=== PATIENT | female | born 1935 | race Caucasian/White ===

== ENCOUNTER 2017-01-09 16:27 | Emergency (ER) | payer MEDICARE, MEDICAID ==
[~2017-01-09] VITALS: Ht 162.6 cm; Wt 86.4 kg
[~2017-01-09 16:27] MED LIST: CELE100C85 PO; DIAZ5TAB3 PO; DOXE10CA PO; DULO30CA50 PO; HYDR25TA4 PO; LOSA50TA37 PO; METF500T4 PO; OMEP40CA36 PO; OXYC-465 PO; POLY17PO2 PO; PRAV20TA2 PO; TIZA2CAP9 PO
[2017-01-09 16:38] VITALS: BP 143/114; PULSE 76; RESP 18; O2SAT 97
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
[2017-01-09] MEDS ORDERED: Ondansetron 2 mg/mL 2 mL Inj IVPUSH PRN (16:50)
[2017-01-09] MEDS ORDERED: HYDROmorphone 1 mg/mL Inj IVPUSH PRN (16:50)
--- NOTE | 2017-01-09 17:04 | DRSVH ---
PROCEDURE: X-RAY LEFT ANKLE, MINIMUM THREE VIEWS ([id number]) INDICATIONS: ANKLE DEFORMED TECHNIQUE: 3 views of the ankle were acquired. COMPARISON: None. FINDINGS: Bones: Oblique oriented fracture is identified involving the distal shaft of the left fibula with mil d comminution. There also is a fracture present involving the posterior malleolus of the distal tibi a and probably an avulsion fracture involving the tip of the medial malleolus. There is mild widenin g of the distal tibiofibular syndesmosis with slight offset of the medial clear space. The bone mine ralization is decreased. There are degenerative changes noted involving the subtalar joints. There is a moderate-sized enthesophyte at the Achilles tendon insertion on the calcaneus. Irregularity at the tip of the medial malleolus probably is at least in part chronic. Similar appearance is noted in volving the tip of the lateral malleolus. Soft tissues: There is a prominent ankle effusion with overlying soft tissue swelling. IMPRESSION: Mildly displaced trimalleolar left ankle fracture with involvement of the distal tibiofib ular syndesmosis and a prominent joint effusion. Dictated by: Jacobo Saxena M.D. on 01/09/2017 at 17:00 Approved by: Jacobo Saxena M.D. on 01/09/2017 at 17:02
[2017-01-09] MEDS ORDERED: ACET-171 PO (18:06)
[2017-01-09] MEDS ORDERED: HYDR-4003 PO (18:15)
[2017-01-09 18:21] VITALS: BP 129/89; PULSE 67; O2SAT 97
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
[2017-01-17] MEDS ORDERED: VIT1TABL83 PO (12:36)
[2017-01-17] MEDS ORDERED: VENL25TA4 PO (12:36)
[2017-01-17] MEDS ORDERED: GABA-500 PO (12:36)
[2017-01-17] MEDS ORDERED: LYSI500T PO (12:36)
[2017-01-17] MEDS ORDERED: BENZ100C8 PO (12:36)
[2017-01-17] MEDS ORDERED: DICL100G8 TOPICAL (12:36)
[2017-01-17] MEDS ORDERED: CALC200T6 PO (12:36)
[2017-01-17] MEDS ORDERED: ASCO500C6 PO (12:36)
[2017-01-17] MEDS ORDERED: CHOL100045 PO (12:36)
[2017-01-17] MEDS ORDERED: MAPAP PO (12:39)
[2017-01-17] MEDS ORDERED: TIZA2TAB3 PO (12:39)
== END 2017-01-09 18:23 | disposition home or self-care (01) ==
LOC: SED 16:27 → EDBD 16:27 → SED 18:23
DX: S82.852A Displaced trimalleolar fracture of left lower leg, initial encounter for closed fracture (principal); V19.88XA Pedal cyclist (driver) (passenger) injured in other specified transport accidents, initial encounter; Y93.55 Activity, bike riding; Y92.481 Parking lot as the place of occurrence of the external cause; Y99.8 Other external cause status; I10 Essential (primary) hypertension; E11.9 Type 2 diabetes mellitus without complications; F41.8 Other specified anxiety disorders; K21.9 Gastro-esophageal reflux disease without esophagitis; E78.5 Hyperlipidemia, unspecified; Z88.0 Allergy status to penicillin; Z79.84 Long term (current) use of oral hypoglycemic drugs
CPT/HCPCS: 73600; 73610; 96374; 96375; 99284; J1170; J2405

== ENCOUNTER 2017-01-11 13:03 | Emergency (ER) | payer MEDICARE, MEDICAID ==
[~2017-01-11] VITALS: Ht 165.1 cm; Wt 86.4 kg
[~2017-01-11 13:03] MED LIST changes: +ACET-171 PO; +HYDR-4003 PO
[2017-01-11 13:27] VITALS: BP 126/66; PULSE 90; RESP 16; O2SAT 93
--- NOTE | 2017-01-11 14:44 | ED.REPORT ---
HPI-Extremity Problem Lower Date of Service Jan 11, 2017 ED Provider: Dr. Ding 81 y/o female with a hx of fibromyalgia presents tot he ED complaining of right leg pain, onset today. The pt had injured her left leg two days ago so she has been using a scooter. She states she was trying to back her scooter up when she fell again and injured her right leg. She also complains of right shoulder pain. She has been taking pain medications for the left leg but they do not relieve her pain significantly. She has an appointment with Dr. Anderson next week for her left leg. The pt states she is uncomfortable being home alone because she can barely move and she almost falls while transferring herself from the scooter. Nursing Notes Stated Complaint: BROKEN LEFT ANKLE Chief Complaint: Multiple Trauma/Fall Nursing Notes Reviewed: Yes Allergies: Coded Allergies: Penicillins (Verified Allergy, Unknown, hives - anaphalaxis, 03/28/16) Scheduled Celecoxib (Celecoxib) 100 Mg Capsule 100 MG PO BID Doxepin (Doxepin) 10 Mg Capsule 10 MG PO HS Duloxetine (Duloxetine) 30 Mg Capsule.dr 30 MG PO HS Hydrochlorothiazide (Hydrochlorothiazide) 25 Mg Tablet 25 MG PO DAILY Losartan Potassium (Losartan Potassium) 50 Mg Tablet 50 MG PO DAILY Metformin (Metformin) 500 Mg Tablet 500 MG PO BID Breakfast/Dinner Omeprazole (Omeprazole) 40 Mg Capsule.dr 40 MG PO DAILY Pravastatin (Pravastatin) 20 Mg Tablet 20 MG PO DAILY Scheduled PRN Acetaminophen (Acetaminophen) 500 Mg Tablet 500 MG PO Q6H PRN PRN For Pain Diazepam (Diazepam) 5 Mg Tablet 5 MG PO BID PRN PRN For Anxiety Hydrocodone-Acetaminophen 5-325 mg (Hydrocodone-Acetaminophen 5-325 mg) 1 Each Tablet 1 TABLET PO Q4H PRN PRN For Pain Hydrocodone-Acetaminophen 5-325 mg (Hydrocodone-Acetaminophen 5-325 mg) 1 Each Tablet 1 TABLET PO Q6H PRN PRN For Pain Polyethylene Glycol 3350 (Polyethylene Glycol 3350) 17 Gm Powd.pack 17 GM PO DAILY PRN PRN For Constipation Tizanidine (Tizanidine) 2 Mg Capsule 2 MG PO TID PRN PRN For Spasm oxyCODONE-Acetaminophen 7.5-325 mg (oxyCODONE-Acetaminophen 7.5-325 mg) 1 Each Tablet 1 TAB PO DAILY PRN PRN For Pain General Time Seen by MD: 14:44 Chief Complaint Leg injury right Hx Obtained From: Patient Arrived By: Walk-in Onset Occurred: Just prior to arrival Symptom Duration: Since onset Caused by: Fall on ground Location: : Leg right Quality: Painful Severity: Current: Mild Severity: Maximum: Mild Recent Healthcare: Recent doctor visit Similar Sx Previous: No Past Medical History Past Medical History Colon CA, resolved Fibromyalgia Anxiety Stopped Metformin by her own will Heartburn Diverticulitis Reports: Diabetes mellitus, GERD, Hyperlipidemia, Hypertension Reports: Depression Past Surgical History Partial colectomy 2011 Smoking History Unknown if Ever Smoker Social History Other Social History: Lives alone Ambulatory Status Independent Review of Systems Musculoskeletal: Reports: Extremity pain (right leg pain), Joint pain (right shoulder pain) Complete sys rev & neg: except as marked. Physical Exam The splinted left foot has normal distal neurovascular status. Initial Vital Signs Vital Signs (First) Date Time Temp Pulse Resp B/P Pulse Ox O2 Delivery O2 Flow Rate FiO2 01/11/17 13:27 36.6 90 16 126/66 93 Room Air Initial VS: Reviewed, Vital signs normal Head / Eyes: Atraumatic, Normocephalic Neck: Supple, Non-tender, Full range of motion Respiratory: Breath sounds normal, Clear to auscultation, No respiratory distress Cardiovascular: Regular rate & rhythm, Heart sounds normal, Intact distal pulses Upper Extremities: Vascular intact, Neuro intact, No swelling, No tenderness Skin: Warm, Dry, No cyanosis Neurologic: Alert, Oriented, Nonfocal Lower Extremity / Pelvis / MS: Atraumatic, Neurologic intact, Vascular intact Left leg in a cast Free range of motion in right leg Ankle / Foot: Atraumatic, No deformity, Neurologic intact, Vascular intact Re-Eval/Medical Decision Med Decision/Clinical Course Physical therapy sees the patient and does believe that it is reasonable to attempt home management of this fracture and many strategies for ambulation and mobility were discussed. Source of Hx: Old records Re-Evaluation/Progress : Time of Eval: 16:45 Patient Status: Condition improved Re-Evaluation/Progress Note: Rechecked pt. She feels better after the pain medication. Discussed lab results, imaging results, diagnosis and plan to discharge. Pt understands and agrees with the plan. F/U instructions and RTER warning given. All questions addressed. Counseled Regarding: Diagnosis, Need for follow-up, When/why to return to ED Discharge & Departure Impression: Primary Impression: Left trimalleolar fracture Additional Impressions: Fall from ground level Contusion of right hip Disposition: Home Discharge Condition All VS Reviewed: Yes Condition: Stable Patient Instructions: Fall Prevention for Older Adults (ED) Additional Instructions: Take great care with moving about to avoid future falls. One possible keep that ankle elevated above your heart. I do recommend that you attempt to use ice packs 30 minutes at a time. Take one hydrocodone/APAP and two regular strength Tylenol (325 mg) every 6 hours. Keep your appointment with Dr. Anderson for your left leg. Return to the emergency department in case of new or worsening symptoms. Referrals: Caroline Valenzuela MD (PCP) Scribe Attestation Portions of this note were transcribed by Darrick Warren. I, , personally performed the history, physical exam and medical decision- making;I reviewed and confirmed the accuracy of the information in the transcribed note. Signed by Bhavna Manuel. 01/11/17 16:44 copies to: Caroline Valenzuela MD, Kirk H MD Jan 11, 2017 14:44 aDrrick Warren Jan 11, 2017 14:58
[2017-01-11] MEDS ORDERED: HYDROcodone-APAP 10-325 mg PO ONE (15:05)
[2017-01-11] MEDS ORDERED: HYDR-4003 PO (16:48)
[2017-01-11] MEDS ORDERED: HYDROcodone-APAP 5-325 mg Tablet PO ONE (16:50)
[2017-01-11 17:03] VITALS: BP 144/72; PULSE 83; RESP 12
[2017-01-17] MEDS ORDERED: VIT1TABL83 PO (12:36)
[2017-01-17] MEDS ORDERED: ASCO500C6 PO (12:36)
[2017-01-17] MEDS ORDERED: CHOL100045 PO (12:36)
[2017-01-17] MEDS ORDERED: VENL25TA4 PO (12:36)
[2017-01-17] MEDS ORDERED: GABA-500 PO (12:36)
[2017-01-17] MEDS ORDERED: LYSI500T PO (12:36)
[2017-01-17] MEDS ORDERED: DICL100G8 TOPICAL (12:36)
[2017-01-17] MEDS ORDERED: BENZ100C8 PO (12:36)
[2017-01-17] MEDS ORDERED: CALC200T6 PO (12:36)
[2017-01-17] MEDS ORDERED: TIZA2TAB3 PO (12:39)
[2017-01-17] MEDS ORDERED: MAPAP PO (12:39)
== END 2017-01-11 17:04 | disposition home or self-care (01) ==
LOC: SED 13:03
DX: S82.852A Displaced trimalleolar fracture of left lower leg, initial encounter for closed fracture (principal); S70.01XA Contusion of right hip, initial encounter; M25.511 Pain in right shoulder; V00.148A Other scooter (nonmotorized) accident, initial encounter; Y93.89 Activity, other specified; Y99.8 Other external cause status; Y92.019 Unspecified place in single-family (private) house as the place of occurrence of the external cause; K21.9 Gastro-esophageal reflux disease without esophagitis; I10 Essential (primary) hypertension; E78.5 Hyperlipidemia, unspecified; F41.9 Anxiety disorder, unspecified; M79.7 Fibromyalgia; Z85.038 Personal history of other malignant neoplasm of large intestine; Z88.0 Allergy status to penicillin; Z79.84 Long term (current) use of oral hypoglycemic drugs

== ENCOUNTER 2017-01-18 06:44 | Day surgery (SDC) | payer MEDICARE, MEDICAID ==
--- NOTE | 2017-01-17 15:37 | PCM.ANEPRE ---
Anesthesia Pre-Op Review Reason for Review: SURGEON'S REQUEST-MULT FALLS R/T PAF & DIZZINESS Anesthesia Recommendations: Proceed with Procedure Additional Comments 81 y/o female with ankle fracture s/p fall scheduled for L ankle ORIF tomorrow. Surgery is urgent but not an emergency. Patient has h/o PAF. EKG for preop on 01/17/17 showed NSR with HR 90. EKG in [facility] ED after fall on 01/11/19 showed NSR with HR 90. 03/29/16 Echo showed EF 60-65% with mild-mod tricuspid regurgitation but no other valvular disease. Cardiac stress test on 04/13 showed a normal exercise capacity. No cardiology consult that I can find, but the patient seems to be well controlled with her PCP on several BP meds. Proceed with surgery as planned pending evaluation by DOS anesthesiologist. Roger Huizar MD Jan 17, 2017 15:37
[2017-01-18] VITALS (16 sets, daily range): BP systolic 125–175; BP diastolic 57–73; PULSE 83–107; RESP 7–19; O2SAT 92–99
[~2017-01-18] VITALS: Ht 162.6 cm; Wt 86.2 kg
[2017-01-18] MEDS: Lactated Ringer's 1,000 ML IV SCH ×5 (06:00→17:48)
[~2017-01-18 06:44] MED LIST changes: -ACET-171 PO; +ASCO500C6 PO; +BENZ100C8 PO; +CALC200T6 PO; +CHOL100045 PO; +Clindamycin 900 mg/50 mL D5W IV ONE; +DICL100G8 TOPICAL; +GABA-500 PO; +LYSI500T PO; +MAPAP PO; -OXYC-465 PO; -TIZA2CAP9 PO; +TIZA2TAB3 PO; +VENL25TA4 PO; +VIT1TABL83 PO
[2017-01-18] MEDS ORDERED: Dexamethasone 4 mg/mL Inj ONE (06:45)
[2017-01-18] MEDS ORDERED: Ondansetron 2 mg/mL 2 mL Inj ONE (06:45)
[2017-01-18] MEDS ORDERED: Propofol 10,000 mCg/mL 20 mL Inj ONE (06:45)
[2017-01-18] MEDS ORDERED: fentaNYL-PF 50 mCg/mL 2 mL Inj ONE (06:45)
--- NOTE | 2017-01-18 08:12 | PCM.HPANE ---
Patient Data Surgeon Admitting Provider: Attending Provider:Baljit Anderson MD Primary Care Physician:Caroline Valenzuela MD Other Provider:Nicki Caliingham Anesthesia Reason for Visit Left Ankle Trimalleolar Fracture Ht/WT & BMI Height (Feet): 5 Height (Inches): 4.00 Weight (Kilograms): 86.183 Body Mass Index 32.00 Allergies Coded Allergies: Penicillins (Verified Allergy, Severe, HIVES,DIFFICULTY SWALLOWING, ) Sulfa (Sulfonamide Antibiotics) (Verified Allergy, Severe, HIVES, 01/17/17) Adhesives (Verified Allergy, Unknown, UNKNOWN, 01/17/17) codeine (Verified Allergy, Unknown, UNKNOWN, 01/17/17) NSAIDS (Non-Steroidal Anti-Inflamma (Verified Adverse Reaction, Severe, BLEEDING ULCER W/ HIGH DOSE (ASA,IBUPROFEN), 01/17/17) Past Anesthesia History Anesthesia History: Denies:: Anesthesia Reactions, Malignant Hyperthermia Diabetes History Hx Diabetes?: Yes Type of Diabetes: Type II Glycemic Control: Diet Controlled Current Bedside Blood Glucose: 131 MRSA MRSA: No Medications Hypertension Medication: Yes (LOSARTAN,HCTZ) Home Meds Incl Beta Kathy: No Active Scripts Hydrocodone-Acetaminophen 5-325 mg 1 Each Tablet1 Tablet PO Q4H PRN For Pain # 14 TABLET Prov:Chirag Dodge MD 01/09/17 Losartan Potassium 50 Mg Iqclwz22 Mg PO DAILY #30 TABLET Prov:Lorraine Love MD 03/30/16 Reported Medications [Mapap] No Conflict [id number] Mg PO PRN 01/17/17 Tizanidine 2 Mg Tablet2 Mg PO TID PRN PRN 01/17/17 Diclofenac Gel (Voltaren Gel)100 Gm Tube1 Applic TOPICAL QID PRN PRN #1 TUBE 01/17/17 Cholecalciferol (Vitamin D3) (Vitamin D)1,000 Unit Capsule4,000 Unit PO DAILY # 1 BOTTLE Ref 0 01/17/17 Ascorbic Acid (Vitamin C)500 Mg Capsule.er1,000 Mg PO DAILY 01/17/17 Vit B Comp/C/FA/Iron/Vit E (Vitamin B Complex Tablet)1 Each Tablet1 Each PO DAILY 01/17/17 Venlafaxine 25 Mg Otqgum57 Mg PO TID Ref 0 01/17/17 Lysine (l-Lysine)500 Mg Mygjqm577 Mg PO DAILY 01/17/17 Gabapentin 100 Mg Gblvtnz912 Mg PO TID 30 Days Ref 0 01/17/17 Calcium Citrate 200 Mg Xnhouf568 Mg PO DAILY 01/17/17 Benzonatate 100 Mg Rgoayjk055 Mg PO TID PRN PRN 01/17/17 Metformin 500 Mg Hruddf260 Mg PO BID Breakfast/Dinner #60 PT STOPPED W/O ADVICE OF 03/29/16 Duloxetine 30 Mg Capsule.dr60 Mg PO HS #30 03/29/16 Celecoxib 100 Mg Acknjls277 Mg PO DAILY PRN PRN 03/28/16 Pravastatin 20 Mg Jvejuj08 Mg PO DAILY Ref 0 03/28/16 Polyethylene Glycol 3350 17 Gm Powd.pack17 Gm PO DAILY PRN For Constipation 03/28/16 Omeprazole 40 Mg Capsule.dr20 Mg PO DAILY Ref 0 03/28/16 Hydrochlorothiazide 25 Mg Tfbsok15 Mg PO DAILY 30 Days Ref 0 03/28/16 Doxepin 10 Mg Azxrsqa06 Mg PO HS 03/28/16 Diazepam 5 Mg Tablet5 Mg PO TID PRN For Anxiety Ref 0 03/28/16 Discontinued Reported Medications Tizanidine 2 Mg Capsule2 Mg PO TID PRN For Spasm 03/28/16 oxyCODONE-Acetaminophen 7.5-325 mg 1 Each Tablet1 Tab PO DAILY PRN For Pain Ref 0 03/28/16 Discontinued Scripts Hydrocodone-Acetaminophen 5-325 mg 1 Each Tablet1 Tablet PO Q6H PRN For Pain # 15 TABLET Prov:Raffy Ding MD 01/11/17 Acetaminophen 500 Mg Tvivxw929 Mg PO Q6H PRN For Pain #60 TABLET Prov:Chirag Dodge MD 01/09/17 History History of ENT Problems?: Yes HEENT History: Positive for:: Cataracts (S/P B/L EXTRACTIONS) Hearing Problem Denture Type: None Teeth Condition: Within Normal Limits Hx of Heart Problems?: Yes Cardiovascular History: Positive for:: Atrial Fibrillation (BOUTS OF PAF W/ DIAPHOIRESIS,DIZZINESS & FALLS) Hypertension (HYPERLIPIDEMIA) Denies:: AICD Abdominal Aortic Aneurism Cardiac Surgery Chest Pain Congestive Heart Failure Edema Heart Murmur (MPS 03/2016-exercise portion of exam wnl) Irregular Heartbeat Pacemaker Rheumatic Fever Thrombophlebitis Valvular Heart Disease Other Cardiac History: S/P THOIRACIC OUTLET SYNDROME RELEASE Hx of Respiratory Problem?: Yes Respiratory History: Positive for:: Cough (CHRONIC) Denies:: Asthma COPD Chest Surgery Dyspnea Emphysema Hemoptysis Oxygen Administration Pneumonia Pulmonary Embolism Tuberculosis Use of C-PAP Machine (SUSPECT DEQUAN+) Hx Neurologic Problems?: Yes Hx of GI Problems?: Yes Other GI Pertinent History: S/P APPY,SIGMOIDECTOMY FOR DIVERTICULITIS,RANULFO- COLECTOMY FOR CA W/ COLOSTOMY & TAKEDOWN,LYSIS OF ADHESIONS HX IBS Hx of Problems?: No Genitourinary History: Denies:: HX of Hemodialysis Kidney Stones Urinary Tract Infection Female Hx: Denies:: Currently (HX MISSED AB) Endometriosis Pelvic Inflammatory Problems with Breasts? Skin History: Positive for:: History Skin Disorders? (S/P EXC SKIN CA'S) Denies:: Pressure Ulcers Hx Musculoskeletal Problems?: Yes Musculoskeletal History: Positive for:: Back Injury (C/OF LOWER BACK PAIN/ SHOULDER & B/L HIP PAIN) Degenerative Joint Fibromyalgia (SEES DR. Omi MORELAND) Joint Replacement (S/P B/L TSA'S) Musculoskeletal Trauma (MULT. FALLS LT ANKLE FX (DOI 01/09/17)=CURRENT PROBLEM) Osteoarthritis Systemic Lupus Hx of Psycho/Social Problems?: Yes Psycho Social History: Positive for:: Anxiety Hx Depression Denies:: Bipolar Disorder Suicide Attempt Hx Surgeries?: Yes (SIGMOIDECTOMY,RANULFO-COLECTOMY,B/L CATARACT,RY,APPY,B/L TSA'S,EXC SKIN CA') Hx Any Other Health Problems?: Yes Other History: Positive for:: Cancer (skin, COLON) Hospitalization Denies:: Endocrine Disease Thyroid Disease History Blood Transfusions: Denies:: Blood Transfusions Hx Diabetes: YesBedside Blood Glucose: 131 Hx Alcohol Use: NoHx Substance Use: No Smoking Status: Unknown if Ever Smoker Have You Smoked inLast 12 mo: No Stop/Bang S-Snoring: Do You Snore Loudly: No T-Tired: feel tired, fatigued: Yes O-Obsered: Observed not breath: No P-Blood Pressure: treated: Yes B- Body Mass Index > 35 kg/m2: No A- Age over 50: Yes N- Neck Large Circumference: No G- Gender Male: No DEQUAN Total Score: 3 DEQUAN Risk Assessment: Low Risk, <3 Yes Risk Assessment Category Category 1A: Patient has history of documented sleep apnea, and HAS NOT received any narcotic, sedative or anesthesia administration during this stay. Category 1B: Patient has history of documented sleep apnea, and HAS received any narcotic , sedative or anesthesia administration during this stay Category 2: Patient has SUSPECTED Obstructive Sleep Apnea, and HAS received any narcotic , sedative or anesthesia administration during this stay. Category 3: Patient has SUSPECTED Obstructive Sleep Apnea and HAS NOT received narcotic, sedative or anesthesia administration during this stay. Category 4: Outpatient in Procedural Areas with known sleep apnea or who screen positive for High Risk via the STOP/BANG questionnaire. Exam Exam Vital Signs Vital Signs Date Time Temp Pulse Resp B/P Pulse Ox O2 Delivery O2 Flow Rate FiO2 01/18/17 07:48 35.9 83 16 134/57 96 Room Air General Appearance: Alert, Oriented X3, Cooperative, No Acute Distress HEENT/AIRWAY: MP 2 Lungs: Clear to Auscultation, Normal Air Movement Heart: Exam Unremarkable, Regular Rate/Rhythm, No Murmurs/Rubs/Gallops Meds/Labs/Diagnostics Admission Meds Current Medications Lactated Ringer's (Lr) 1,000 ml @ 80 mls/hr [id number] IV Last administered on t 06:47; Start 01/18/17 at 06:00 Bedside Blood Glucose: 131 Plan Impression Patient chart reviewed, patient interviewed and anesthestic plan with risks, benefits, and alternatives discussed, and informed consent obtained. NPO per Anesth. Guidelines: Yes ASA Physical Status: ASA2 Mod Systemic Disease Anesthetic Plan: GA Bene/Risks/Altern/Consents: Yes HP Complete Prior to Induction: Yes Paul Palomo MD Jan 18, 2017 08:12
[2017-01-18] MEDS ORDERED: Lactated Ringer's 1,000 ML IV SCH (09:03)
[2017-01-18] MEDS ORDERED: Lactated Ringer's 500 ML IV PRN (09:03)
--- NOTE | 2017-01-18 09:04 | DRSVH ---
PROCEDURE: X-RAY CHEST ONE VIEW, PORTABLE ([id number]) INDICATIONS: PRE OP TECHNIQUE: One view of the chest was acquired. COMPARISON: 03/28/2016 FINDINGS: Surgical changes and devices: Surgical plate lower cervical spine and orthopedic anchors over both hu meral heads as before.. Lungs and pleura: No pleural effusions or pneumothorax. Lungs are clear. Mediastinum: Mediastinal contours appear normal. Heart size is normal. Aortic calcifications. Bones and chest wall: No suspicious bony lesions. Thoracic spondylosis. Overlying soft tissues appe ar unremarkable. IMPRESSION: No acute cardiopulmonary abnormality. Dictated by: Husam Maki M.D. on 01/18/2017 at 9:01 Approved by: Husam Maki M.D. on 01/18/2017 at 9:02
[2017-01-18] MEDS ORDERED: Phenylephrine 10,000 mCg/mL Inj IVPUSH PRN (09:05)
[2017-01-18] MEDS ORDERED: Atropine 0.4 mg/mL Inj IVPUSH PRN (09:05)
[2017-01-18] MEDS ORDERED: Dexamethasone 4 mg/mL Inj IVPUSH PRN (09:05)
[2017-01-18] MEDS ORDERED: Ondansetron 2 mg/mL 2 mL Inj IVPUSH PRN ×2 (09:05→11:05)
[2017-01-18] MEDS ORDERED: MetoCLOpramide 5 mg/mL 2 mL Inj IVPUSH PRN ×2 (09:05→11:05)
[2017-01-18] MEDS ORDERED: Labetalol 5 mg/mL 4 mL Inj IV PRN (09:05)
[2017-01-18] MEDS ORDERED: EPHEDrine Sulfate 50 mg/mL Inj IVPUSH PRN (09:05)
--- NOTE | 2017-01-18 09:05 | DRSVH ---
PROCEDURE: X-RAY RIGHT HAND, MINIMUM THREE VIEWS ([id number]) INDICATIONS: RECENT FALL TECHNIQUE: 3 views of the hand(s) acquired. COMPARISON: None. FINDINGS: Bones: Generalized osteopenia. Acute spiral fracture midshaft fifth metacarpal with lateral displacem ent and overriding of the distal fracture fragment. No additional fractures seen. Arthritic changes i n the radial aspect of the carpus. Soft tissues: No suspicious soft tissue calcifications. IMPRESSION: Fracture mid shaft fifth metacarpal Dictated by: Husam Maki M.D. on 01/18/2017 at 9:02 Approved by: Husam Maki M.D. on 01/18/2017 at 9:03
[2017-01-18] MEDS ORDERED: Bacitracin 50,000 unit Inj IRRIGATION ONE (09:23)
[2017-01-18] MEDS ORDERED: Ropivacaine-PF 0.5% 30 mL Inj INJ ONE (09:23)
[2017-01-18] MEDS: HYDROmorphone 1 mg/mL Inj IVPUSH PRN ×3 (10:55→12:45)
--- NOTE | 2017-01-18 10:59 | PCM.ANEP1 ---
Post Anesthesia PACU Phase 1 Assessment Vital Signs Vital Signs Date Time Temp Pulse Resp B/P Pulse Ox O2 Delivery O2 Flow Rate FiO2 01/18/17 07:48 35.9 83 16 134/57 96 Room Air Anesthetic Administered: GA Level of Alertness: Awake, talking RAMOS's with Equal Strength: Yes Pain: Yes Pain Scale Score: 5 Nausea or Vomiting: No CV Function & Hydration Stable: Yes Airway Device: Oralpharangeal Airway Oxygen Delivery: Nasal Cannula Lungs: Clear to Auscultation, Normal Air Movement Dermatome Level: Full Sensation PACU Phase 2 Assessment Complications: No Follow up Care: N/A Patient Instructions Provided: Yes Paul Palomo MD Jan 18, 2017 10:59
[2017-01-18] MEDS: fentaNYL-PF 50 mCg/mL 2 mL Inj IVPUSH PRN ×2 (11:03→11:16)
[2017-01-18] MEDS ORDERED: Sodium Biphos-Phos 133 mL Enema RECTAL PRN (11:05)
[2017-01-18] MEDS ORDERED: Magnesium Hydroxide 10 mL Oral Concentration PO PRN (11:05)
[2017-01-18] MEDS ORDERED: diphenhydrAMINE 25 mg Capsule PO PRN (11:05)
--- NOTE | 2017-01-18 11:14 | PCM.ORTHOP ---
Orthopedic Operative Report Date of Service: Jan 18, 2017 Pre Operative Diagnosis Left ankle trimalleolar fracture, right fifth metacarpal fracture Post Operative Diagnosis Same Procedure Left trimalleolar ankle open reduction internal fixation, with syndesmosis fixation, right hand fifth metacarpal closed reduction and splinting Surgeon Surgeon: Baljit Anderson MD Assistants: None Indication for Procedure Left ankle fracture, right hand fifth metacarpal fracture Findings Per dictation Details of Procedure Indications: Corina England is a 81-year-old female who sustained a left trimalleolar ankle fracture a few days ago, and right hand fifth metacarpal fracture this morning after fall from standing. A clear explanation was given to the patient regarding the condition present, and the available conservative and surgical options. It was emphasized that the risks and benefits of surgery include but are not limited to infection, wound healing problems, damage to adjacent structures such as nerves, blood vessels and tendons, longterm disability and pain, arthritis, hypersensitivity, deep vein thrombosis, pulmonary embolism, broken hardware, failure of surgery, need for further procedures at time of surgery or later, cast related problems, loss of limb or life. The patient was given an explanation and the patient voiced understanding of what to expect after the procedure or surgery, the limitations in activities of daily living, the likely duration for post operative recovery and the instructions that are to be followed. At the end the patient was invited to seek clarification or ask further questions but there were none. The patient voiced understanding of the entire consultation. Description of Operation: The patient was brought to the operating room. Patient name and surgical site were confirmed. Preoperative antibiotics were given. The patient was placed supine on the operating table. General anesthesia was administered. A well padded tourniquet was placed on the leg. The leg was then prepped and draped in the usual sterile fashion. The leg was exsanguinated and the tourniquet was inflated. The lateral malleolus was addressed first. An incision was made over the lateral ankle. Subcutaneous dissection was performed down to the lateral malleolus. Care was taken to avoid injury to the superficial peroneal nerve. The fracture was cleaned of debris and interposed soft tissue. The fracture was reduced to anatomic alignment using reduction clamps and preliminary fixation techniques. There was comminution and the bone was severely osteopenic and not amenable to lag screw fixation. Fluoroscopy was used to confirm satisfactory reduction. A distal fibular Arthrex plate was then placed and secured in position using 3.5 mm fully threaded cortical screws proximally and 3.5 mm locking screws distally. Solid bony purchase was achieved with a combination of locking and nonlocking screws. Final radiographs confirmed anatomic reduction of the fracture. The ankle was stressed and the syndesmosis was unstable with increased with gapping of the tib-fib joint. The syndesmosis tight rope was inserted with ankle dorsiflexion. Jainism of the ankle mortise, and adequate placement of hardware. The ankle joint was stressed and the syndesmosis was found to be stable along with no subluxation of the joint on the lateral view so the decision was made not to fix the posterior malleolus fracture which was stable. The tourniquet was deflated. Hemostasis was obtained with electrocautery. The wounds were thoroughly irrigated with bulb irrigation. The wounds were then closed in layers. The incisions were cleaned and dressed with Adaptic, gauze, and soft roll. She had 2 large fracture blisters which had burst medially as well as anteriorly which were dressed with Xeroform as well as an abrasion which was also dressed with Xeroform. A well padded plaster splint was then placed and wrapped with an Deyvi bandage. Estimated blood loss was 15 cc. There were no immediate complications. The patient was transferred to the PACU in stable condition. I was present for the entire procedure. Next attention was paid to the right fifth metacarpal fracture. Closed reduction was performed and a well-padded ulnar gutter splint was applied and the with the fingers in intrinsic plus. C-arm fluoroscopy was used to confirm acceptable reduction. Description of Findings: Severely osteopenic bone with comminution of distal fibula fracture, medial malleolus, and small posterior malleolus fracture involving less than 20 % of the articular surface with no instability on stressing Specimens Obtained: none Please keep dressing clean dry and intact. Do not remove dressing until follow- up in clinic. Do not weight-bear on the affected extremity. You may use a scooter to help with ambulation on your unaffected extremity. You will follow up in clinic in 10-14 days for suture removal, and placement of new Steri- Strips. You will follow-up with me in clinic with new x-rays at this time. You will follow-up with me at 6 weeks postop and may start weightbearing as tolerated when radiographic healing noted which may take an additional 4-6 weeks. Please keep the affected extremity elevated when possible. You may use ice and/or heat as needed for comfort (preferably ice during the first 48-72 hours). Please feel free to call with any further questions, comments, and/or concerns. Given your instability with recent falls on the scooter as well as solitary living situation, we will order PT/OT with 23 hour observation for further evaluation and possible group home facility evaluation will be performed. Social work has been consulted. Grafts, Implants: Implants-See Implant Record Complications There were no periprocedural complications identified. Condition Stable Anesthetic Administered: GA Drains: WES Drain #1, None Catheters: None Output, Estimated Blood Loss: 15 Blood Admin during surgery: No Surgical Cast or Splint: Short Arm Splint, Well-padded Short Leg Splint Surgical Specimen Removed: No Specimen sent to Pathology: No copies to: Baljit Anderson MD, Christopher L MD Jan 18, 2017 11:14
[2017-01-18] MEDS: HYDROcodone-APAP 5-325 mg Tablet PO PRN ×2 (13:36→21:23)
[2017-01-18] MEDS: 0.9% Sodium Chloride 1,000 ML IV SCH ×2 (13:38→23:31)
--- NOTE | 2017-01-18 15:16 | NUR ---
Evaluation completed. Please go to "Notes" then click on "Assessments and Notes" (bottom left corner of screen). Then select appropriate discipline tab on top of screen.
[2017-01-18] MEDS: Ketorolac 15 mg/mL Inj IVPUSH PRN ×2 (16:02→23:20)
[2017-01-18 17:47] LABS: APPEARANCE,URINE CLEAR (CLEAR,HAZY); COLOR,URINE STRAW (YELLOW); OCCULT BLOOD,URINE NEGATIVE (NEGATIVE); PH,URINE 5.5 (5.0-8.0); UROBILINOGEN,URINE NORMAL (NORMAL)
[2017-01-18] MEDS: Clindamycin Inj 900 MG in IV Premix 1 EACH IV SCH (17:48)
--- NOTE | 2017-01-18 18:27 | NUR ---
Admit/Pain Pt admitted to [facility] post op at 13:00. Vitals stable, pain 7/10. Inpatient pain control regiment initiated and pt was educated on uses of pain meds. Cardiac: Pt denies CP. HR 90s Resp: Pt denies SOB at rest, SPO2 96-97% on 2L NC, pt desats down to 86% on RA when she sleeps. continuos pulse ox on. GI/: Pt denies n/v/d Neuro: A&Ox3, RAMOS,
[2017-01-18] MEDS: Senna-Docusate 8.6-50 mg Tablet PO SCH (20:30)
[2017-01-19 00:06] VITALS: BP 137/72; PULSE 91; RESP 18; O2SAT 97
[2017-01-19] MEDS: HYDROcodone-APAP 5-325 mg Tablet PO PRN ×5 (01:11→18:17)
[2017-01-19] MEDS: Clindamycin Inj 900 MG in IV Premix 1 EACH IV SCH (01:13)
[2017-01-19] MEDS: Lactated Ringer's 1,000 ML IV SCH ×2 (04:13→19:30)
--- NOTE | 2017-01-19 04:34 | NUR ---
PAIN Pt receiving Toradol q6h and [place] q4h. Pt reports that when these are given scheduled, pain is managed effectively. Pain ranges from 2-5. Ice packs on dorsal left shoulder and ventral left shoulder--pt states this if effective. Pt noted after being taken off of bedpan, she has a very painful area on her upper medial left thigh. Hard to see until pt touched spot--pt has small laceration, no signs of inflammation noted. Bandaid applied to help protect.
[2017-01-19] MEDS: Ketorolac 15 mg/mL Inj IVPUSH PRN ×3 (05:06→19:31)
[2017-01-19 05:13] VITALS: BP 133/61; PULSE 88; RESP 18; O2SAT 96
[2017-01-19] MEDS: Polyethylene Glycol (PEG) 17 Gm Powder PO PRN (05:13)
[2017-01-19 06:29] LABS: BASOPHILS % (AUTO) 0.2 % (0-3); EOSINOPHILS % (AUTO) 0.3 % (0-5); MONOCYTES % (AUTO) 8.6 % (4-12); Mean Corpuscular Hemoglobin 28.6 pg (27.0-35.0); Mean Corpuscular Volume 85.2 fL (81-100); Platelet Count 296 bil/L (150-400)
[2017-01-19] MEDS: Senna-Docusate 8.6-50 mg Tablet PO SCH ×2 (08:30→19:31)
--- NOTE | 2017-01-19 08:41 | PCM.PNORTH ---
Subjective Date of Service: Jan 19, 2017 Visit Information: Reason for Visit Left Ankle Trimalleolar Fracture Surgery/Surgery Date L ANKLE ORIF 01/18/17 Post-Op Day # Date of Admission: Hospital Day # Subjective Found patient awake and alert with head of bed elevated. No complaints of pain at this time. Discussed patient's condition regarding her left lower extremity and right upper extremity. Patient relates that she has noticed in the last few months that her balance has been problematic and relates that she has taken at least 6 ground-level falls at her new apartment over that period of time. Patient states that she had purchased her own knee scooter in an effort to manage her left lower extremity injury and found out to relate that this was problematic for her. She suffered a ground-level fall the morning of her ankle surgery which was yesterday on 01/18/2017 at which time she suffered a right hand fifth metacarpal fracture. At this time patient is adamant that she does not wish to go home from the hospital and would like to discharge to a facility where she can have appropriate care and have someone help her with mobility. She indicates she lives in an apartment which is very small and she is on her own with no caregiver present. I have advised patient that we will have professor of social work talk with her about discharge plans and that physical therapy will work with her regarding a front wheeled platform walker to increase her mobility and I have advised her to discontinue use of her knee scooter for the time being. Postop General: No Complaints, No Shortness of Breath, No Chest Pain Pain Management: PO Objective Exam Objective Alert and oriented 3 and pleasant. No complaints pain at this time Interoperative dressing and splinted left lower extremity is clean dry and intact and left lower extremity is elevated. Toe wiggle and sensation are intact at left lower extremity distally Calf and thigh are soft and nontender. Right upper extremity splint is clean dry and intact. No compartment syndrome is noted at the upper extremity Thumb index and long finger are exposed from her splint and are mobile with good sensation. Physical therapy is seeing patient this morning and will attempt mobility with platform walker. Physical therapy recommends discharge to fdc facility based on patient's history of falling, the fact that she lives alone and injury at 2 extremities. Vital Signs and I/O Vital Sign - Last Date Time Temp Pulse Resp B/P Pulse Ox O2 Delivery O2 Flow Rate FiO2 01/19/17 05:13 36.5 88 18 133/61 96 Nasal Cannula 2.00 Intake and Output 01/18/17 01/18/17 01/19/17 Cumulative From/Thru 15:00 23:00 07:00 01/17/17 12:43 - 01/19/17 05:22 Intake Total 900 ml 650 ml 1614 ml 3164 ml Output Total 35 ml 700 ml 650 ml 1385 ml Balance 865 ml -50 ml 964 ml 1779 ml Intake Oral 400 ml 1200 ml 1600 ml IV Total 900 ml 250 ml 414 ml 1564 ml Output Urine Total 700 ml 650 ml 1350 ml Estimated Blood Loss 35 ml 35 ml # Bowel Movements 0 0 0 Lab & Micro Results Laboratory Tests Test 01/18/17 17:30 01/19/17 06:10 Urine Color Straw (YELLOW) Urine Appearance Clear (CLEAR,HAZY) Urine pH 5.5 (5.0-8.0) Urine Specific [place] <1.005 (1.003-1.035) Urine Protein Negativemg/dL (NEG,TRACE) Urine Glucose (UA) Negativemg/dL (NEGATIVE) Urine Ketones Negativemg/dL (NEGATIVE) Urine Occult Blood Negative (NEGATIVE) Urine Nitrite Negative (NEGATIVE) Urine Bilirubin Negative (NEGATIVE) Urine Urobilinogen Normalmg/dL (NORMAL) Urine Leukocyte Esterase Negative (NEGATIVE) Urine RBC 0-2/hpf (0-2) Urine WBC 0-5/hpf (0-5) Urine Epithelial Cells Occasional/hpf (NONE-MOD) Urine Crystals None seen (NONE SEEN) Urine Bacteria None/hpf (NONE-FEW) Urine Hyaline Casts None/lpf (NONE) Urine Granular Casts None seen (NONE SEEN) Urine Waxy Casts None seen (NONE SEEN) Urine Red Blood Cell Casts None seen (NONE SEEN) Urine White Blood Cell Casts None seen (NONE SEEN) Urine Mucus None seen (None Seen) Urine Trichomonas None seen (NONE SEEN) Urine Yeast None (NONE SEEN) Urinalysis Comment None Urine Culture Reflexed Not indicated White Blood Count 10.2th/mm3 (3.8-10.1) Red Blood Count 3.64mil/mm3 (3.90-5.20) Hemoglobin 10.4g/dL (12.0-15.6) Hematocrit 31.0% (35.0-46.0) Mean Corpuscular Volume 85.2fL (81-100) Mean Corpuscular Hemoglobin 28.6pg (27.0-35.0) Mean Corpuscular Hemoglobin Concent 33.5% (32.0-37.0) Red Cell Distribution Width 13.9% (12.3-15.4) Platelet Count 296bil/L (150-400) Neutrophils (%) (Auto) 70.0% (40-74) Lymphocytes (%) (Auto) 20.8% (14-46) Monocytes (%) (Auto) 8.6% (4-12) Eosinophils (%) (Auto) 0.3% (0-5) Basophils (%) (Auto) 0.2% (0-3) Result Diagram: 01/19/17 0610 General Appearance: Alert, Oriented X3, Cooperative, No Acute Distress Extremities: No Compartment Syndrom Noted, Thigh & Calf Soft/Nontender Postop Sensory Motor: Distal Motor Intact, Movement in Toes, Movement in Fingers, Distal Sensation Intact Activity: Activity per PT, Ambulate with PT (nonweightbearing on the left lower extremity using front wheeled platform walker. Nonweightbearing at the right upper extremity using front wheel platform walker) Catheters: None Assessment & Plan Impression Patient is a very pleasant and cognitively appropriate 81-year-old female who has had a recent history of changes in her balance. She has had a number of ground-level falls over the last 2-3 months culminating in a ground-level fall on 01/18/2017 at home prior to coming to the hospital for left ankle surgery. This has resulted in a right fifth metacarpal fracture which is currently well splinted. She is undergone left ankle surgery for repair of her ankle fracture and disposition timing and location are now being considered. Problems: Plan Postop day #1 from left ankle fracture ORIF performed on 01/18/[address] Baljit Anderson. Post admission day #1 from right fifth metacarpal fracture suffered on 2016 while at home and preparing to come to the hospital for the above mentioned ankle surgery. LEFT ANKLE FRACTURE ORIF: Continue nonweightbearing on the left lower extremity using front wheeled platform walker. Patient has been asked to discontinue her knee scooter. Continue formal physical therapy for mobility, gait and safety. Physical therapy has seen patient this morning for gait training using a front-wheeled platform walker. Physical therapist reports significantly reduced mobility with inability to perform sliding board transfers to wheelchair and refusal to use a front wheeled platform walker. Maintained interoperative dressing and splint clean dry and intact and leave in place until seen in office at 2 weeks postop. Ice and elevate the left lower extremity as much as possible for pain and swelling reduction. Continue by mouth pain medication with 5 mg No DVT prophylaxis per Dr. Anderson. RIGHT 5TH METACARPEL FRACTURE: Continue nonweightbearing at the right upper extremity. Continue right upper extremity splinting for immobilization. Keep splint clean dry and intact Continue formal physical therapy for mobility regarding left lower extremity surgery with the use of a front wheeled platform walker for right upper extremity accommodation. Continue occupational therapy for mobility and self-care as available regarding right upper extremity injury. Pain control with left lower extremity pain medication in place. Fracture will be followed at 2 weeks when patient presents for follow-up at left ankle. At this time patient is not safe for discharge to home considering she lives alone.. I have spoken with and they will consult regarding making patient inpatient and planning for SNF on [place]. Patient indicates she does not wish to go home and is concerned for her safety and would prefer to discharge to a fdc facility at this time. I agree with this concern. Follow-up in 2 weeks at [facility] orthopedic clinic with Dr. Baljit Anderson for suture removal, Steri-Strip placement and continued left lower extremity immobilization. Follow-up in 6 weeks at [facility] recommend orthopedic clinic with Dr. Baljit Anderson with left 3 view ankle x-rays on arrival out of immobilization. Anticipate discharge to fdc facility in next 1-2 days. VTE Prophylaxis: SCDs (right lower extremity SCD) Chai Moya PA-C Jan 19, 2017 08:41 Chai Moya PA-C Jan 19, 2017 08:41
[2017-01-19 10:00] VITALS: BP 130/63; PULSE 76; RESP 19; O2SAT 98
--- NOTE | 2017-01-19 11:42 | NUR ---
Social Work- Initial Assessment Data: See Initial Assessment. Pt is a 81 year old female admitted for an ankle surgery as a day surgery patient on 01/18. The morning of her surgery, the pt fell and broke her hand. Pt is POD 1 from ankle surgery. Pt's insurance is [facility] and [facility]. Pt's PCP is Caroline Valenzuela MD. SW met with pt at bedside at pt and MD request because pt is concerned about returning home. SW met with pt at bedside regarding her concerns, SW role explained. Pt alert and oriented x3. Pt resides in [place] in subsidized housing where pt reports an increase in falls over the past few weeks due to instability. Pt has a sit on walker, a knee scooter, and a BSC. Pt reports that her apartment is so small she has a hard time moving around with her equipment and her BSC has been very unstable. Pt is very afraid of falling. Pt reports that she is eligible for [facility] and has been working with Princess Smith to increase her [facility] caregiving hours after this surgery. [facility] is unavailable over the weekend, but DENTURE TECHNICIAN faxed Princess marisol's Orthopedic Progress Note. Pt has SNF history at a SNF in [place], [place]. Pt has no LTC or VA benefits. Pt is open with [facility] for PT OT and DENTURE TECHNICIAN services since 01/15. JENNY confirmed services with Amarilis Wilkinson liaison. Jaja reports that if pt were to discharge home she could be seen on Saturday. Jaja confirms that pt is accepted to return to [facility] services. Pt is strict non-weightbearing on both extremities. JENNY spoke with pt at length and worked to problem solve with pt regarding support at home. 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 Pt's daughter also has a small home, no available bedroom for pt, and four small dogs which would present a fall hazard. Pt reports that she receives $700 each month, most of which is spent on rent (per pt). Pt states she has no funds for a respite bed at assisted living and no funds for a private pay SNF. PT and OT have seen pt, recommending SNF due to pt's extremely limited functional ability. SW acknowledged Half-Way Placement order from the Ortho team. SW explained to pt that she would not be eligible for [facility] to pay for her SNF because she is not an inpatient. UR RN reviewing pt today, but it is unlikely pt's status will change. Pt understands. SW explained that sometimes pt's are able to go to SNF on [facility] to pay for the room/board at the facility and [facility] to pay for the therapies. Pt agreeable to DENTURE TECHNICIAN exploring this option. SNF CHOICE LIST PROVIDED. Pt is agreeable to DENTURE TECHNICIAN making referrals to [facility], [facility], and [facility]. T/C to [facility] who is agreeable to referral. T/C to [facility] who is agreeable to referral. Maribel at [facility] states that pt's [facility] caser will be required to authorize pt's stay prior to being able to discharge to the facility. T/C to [facility] who is agreeable to referral. Access given. SW awaiting call from admissions for all three facilities regarding acceptance/denial. SW discussed that if facilities are unable to accept pt then pt will likely discharge home with [facility] services to begin on Saturday. SW encouraged pt to contact her daughter to see if she would be able to stay with her over the weekend or assist pt at home. Pt stated she would not be able to and pt denied having friends that would be able to assist her at home. SW will continue to follow. Assessment: Pt who is extremely functionally limited secondary to fractured ankle and hand and who requires SNF level of care. Plan: Referrals have been made to [facility], [facility], and [facility] in an attempt to provide pt with the medically necessary therapies to increase safety and mobility at home. Pt is open with [facility] PT OT and DENTURE TECHNICIAN as well, confirmed start date could be Saturday if pt discharges home prior to then. Pt also is working on obtaining [facility] caregiving, ANA Smith, who is unavailable until Saturday. SW will continue to follow. CHRISTINA Marinelli Addendum: 01/19/17 at 1229 by ENRIQUETA MORALES Amended: Links added.
[2017-01-19] MEDS: 0.9% Sodium Chloride 1,000 ML IV SCH (12:01)
[2017-01-19 12:56] VITALS: BP 138/63; PULSE 77; RESP 19; O2SAT 92
--- NOTE | 2017-01-19 14:25 | NUR ---
Pain Patient reported 5/10 ankle and hand pain. 15mg of Toradol and 2 tabs of Helper given. Patient denies nausea. Patient repositions self for comfort. Call light and tray table within reach. Will continue to monitor patient hourly.
[2017-01-19 17:22] VITALS: BP 127/69; PULSE 76; RESP 20; O2SAT 97
[2017-01-19 20:46] VITALS: BP 146/68; PULSE 77; RESP 18; O2SAT 98
[2017-01-20] MEDS: 0.9% Sodium Chloride 1,000 ML IV SCH ×2 (00:31→13:01)
[2017-01-20] MEDS: HYDROcodone-APAP 5-325 mg Tablet PO PRN ×4 (01:19→13:23)
--- NOTE | 2017-01-20 01:56 | NUR ---
Pain At approx 2000 patient began to complain of increased pain. 15mg IVP Toradol was given, but patient was unable to obtain any relief. Also complains of left pinky toe pain. Removed some of the dressing around the pinky toe, and patient was able to receive some relief, however the ankle pain continued to worsen. Rated pain 7/10. 1mg morphine was given, and upon reassessment patient states significant relief and rates pain 3/10. Will continue to monitor and continue Q1 hour checks.
[2017-01-20 05:11] VITALS: BP 148/68; PULSE 70; RESP 16; O2SAT 99
[2017-01-20] MEDS: Senna-Docusate 8.6-50 mg Tablet PO SCH (08:30)
--- NOTE | 2017-01-20 08:45 | PCM.PNORTH ---
Subjective Date of Service: Jan 20, 2017 Visit Information: Reason for Visit Left Ankle Trimalleolar Fracture Surgery/Surgery Date L ANKLE ORIF 01/18/17 Post-Op Day # Date of Admission: Hospital Day # Subjective Foundation awake and alert this morning and sitting up in bed. No complaints of pain at this time at the left lower external refracture or the right upper extremity fracture. Patient does complain of some discomfort at the left fifth toe secondary to impingement from her cast. I have discussed participation with formal physical therapy with patient today and encouraged her to participate as fully as possible with physical therapy to improve her mobility so that she will be safe using a front wheeled walker with a platform. We will also discussed likely discharged to intermediate facility on postop day #3. Postop General: No Shortness of Breath, No Chest Pain, Good Appetite Pain Management: PO, IV Push Objective Exam Objective Alert and oriented 3 and pleasant. Interoperative dressings and splints are clean dry and intact at left lower extremity and right upper extremity.. Left lower extremity posterior plaster splint is impinging on patient's fifth toe this morning and she complains of pain. Duckbill casting pliers were used to relieve this discomfort. Calf and thigh are soft and nontender. Toe wiggle and sensation are intact that left lower extremity distally. Finger wiggle and sensation are intact at right upper extremity and no compartment syndrome is noted. No gait yet with physical therapy. Patient refusing to use a wheeled platform walker yesterday Vital Signs and I/O Vital Sign - Last Date Time Temp Pulse Resp B/P Pulse Ox O2 Delivery O2 Flow Rate FiO2 01/20/17 05:11 36.8 70 16 148/68 99 Nasal Cannula 2.00 Intake and Output 01/19/17 01/19/17 01/20/17 Cumulative From/Thru 15:00 23:00 07:00 01/17/17 12:43 - 01/20/17 06:23 Intake Total 720 ml 520 ml 4404 ml Output Total 850 ml 1900 ml 4135 ml Balance -130 ml -1380 ml 269 ml Intake Oral 720 ml 520 ml 2840 ml IV Total 1564 ml Output Urine Total 850 ml 1900 ml 4100 ml Estimated Blood Loss 35 ml # Bowel Movements 0 0 Result Diagram: 01/19/17 0610 General Appearance: Alert, Oriented X3, Cooperative, No Acute Distress Extremities: No Compartment Syndrom Noted, Thigh & Calf Soft/Nontender Postop Sensory Motor: Distal Motor Intact, Movement in Toes, Movement in Fingers, Distal Sensation Intact Activity: Activity per PT, Ambulate with PT (nonweightbearing on the left lower extremity using front wheeled platform walker. Nonweightbearing at the right upper extremity using front wheel platform walker) Catheters: None Assessment & Plan Plan Postop day #2 from left ankle fracture ORIF performed on 01/18/[address] Baljit Anderson. Post admission day #2 from right fifth metacarpal fracture suffered on 2016 while at home and preparing to come to the hospital for the above mentioned ankle surgery. LEFT ANKLE FRACTURE ORIF: Continue nonweightbearing on the left lower extremity using front wheeled platform walker. Patient has been asked to discontinue her knee scooter. Continue formal physical therapy for mobility, gait and safety. Maintained interoperative dressing and splint clean dry and intact and leave in place until seen in office at 2 weeks postop. Ice and elevate the left lower extremity as much as possible for pain and swelling reduction. Continue by mouth pain medication with 5 mg No DVT prophylaxis per Dr. Anderson. RIGHT 5TH METACARPEL FRACTURE: Continue nonweightbearing at the right upper extremity. Continue right upper extremity splinting for immobilization. Keep splint clean dry and intact and leave in place until seen in office in 2 weeks. Continue formal physical therapy for mobility regarding left lower extremity surgery with the use of a front wheeled platform walker for right upper extremity accommodation. Continue occupational therapy for mobility and self-care as available regarding right upper extremity injury. Pain control with left lower extremity pain medication in place. Fracture will be followed at 2 weeks when patient presents for follow-up at left ankle. NURSING: Please discontinue any IV pain medication immediately. Use by mouth pain medication only at this time and contact me if you need pain medication that is not already ordered. Nursing reports today just prior to discharge that patient's regular home meds had not been rated at time of surgery. These are renewed on discharge paperwork for commencement at intermediate facility. At this time patient is not safe for discharge to home considering she lives alone.. I have spoken with SS and they will consult regarding making patient inpatient and planning for SNF on [place]. Patient indicates she does not wish to go home and is concerned for her safety and would prefer to discharge to a intermediate facility at this time. I agree with this concern. Follow-up in 2 weeks at [facility] orthopedic clinic with Dr. Baljit Anderson for suture removal, Steri-Strip placement and continued left lower extremity immobilization. Follow-up in 6 weeks at [facility] orthopedic clinic with Dr. Baljit Anderson with left 3 view ankle x-rays on arrival out of immobilization. Discharge to intermediate facility today on postoperative day #2, 10/20/2016. VTE Prophylaxis: SCDs (right lower extremity SCD) Chai Moya PA-C Jan 20, 2017 08:45
[2017-01-20] MEDS: Lactated Ringer's 1,000 ML IV SCH (09:11)
[2017-01-20] MEDS: Polyethylene Glycol (PEG) 17 Gm Powder PO PRN (09:14)
--- NOTE | 2017-01-20 10:05 | PCM.DIORTH ---
Ortho Discharge Instruction Date of Service: Jan 20, 2017 Dates of Hospitalization Date of Hospital Admission Providers Admitting Physician: Primary Care Physician: Caroline Valenzuela MD Attending Physician: Baljit Anderson MD Diet Discharge Diet: No restrictions Activity Discharge Activity-General: Be up and about, Ice incision 3-5 time/day for 20min, Activity as pain allows, Activity as energy allows, Restrict lifting to no greater than (no lifting right upper extremity other than use of front- wheeled walker.) Right Upper Extremity: Other (nonweightbearing at the right upper extremity with the exception of use of a platform walker as able.) Left Lower Extremity: Non-weight Bearing (strict nonweightbearing at the left lower extremity. Keep left lower extremity dressing and splint in place until seen in office in 2 weeks.) Discharge Assist Device: Front Wheeled Walker (front wheeled walker with right arm platform.) Dressing and Incisional Care Discharge Dressing Care: Keep dressing clean, dry & intact Discharge Hygiene: No showering Additional Instructions Discharge Instructions Postop day #2 from left ankle fracture ORIF performed on 01/18/[address] Baljit Anderson. Post admission day #2 from right fifth metacarpal fracture suffered on 2016 while at home and preparing to come to the hospital for the above mentioned ankle surgery. LEFT ANKLE FRACTURE ORIF: Continue nonweightbearing on the left lower extremity using front wheeled platform walker. Patient has been asked to discontinue her knee scooter. Continue formal physical therapy for mobility, gait and safety. Maintained interoperative dressing and splint clean dry and intact and leave in place until seen in office at 2 weeks postop. Ice and elevate the left lower extremity as much as possible for pain and swelling reduction. Continue by mouth pain medication with 5 mg No DVT prophylaxis per Dr. Anderson. RIGHT 5TH METACARPEL FRACTURE: Continue nonweightbearing at the right upper extremity. Continue right upper extremity splinting for immobilization. Keep splint clean dry and intact Continue formal physical therapy for mobility regarding left lower extremity surgery with the use of a front wheeled platform walker for right upper extremity accommodation. Continue occupational therapy for mobility and self-care as available regarding right upper extremity injury. Pain control with left lower extremity pain medication in place. Fracture will be followed at 2 weeks when patient presents for follow-up at left ankle. NURSING: Please discontinue any IV pain medication immediately. Use by mouth pain medication only at this time and contact me if you need pain medication that is not already ordered. At this time patient is not safe for discharge to home considering she lives alone.. I have spoken with and they will consult regarding making patient inpatient and planning for SNF on [place]. Patient indicates she does not wish to go home and is concerned for her safety and would prefer to discharge to a residential facility at this time. I agree with this concern. Follow-up in 2 weeks at [facility] orthopedic clinic with Dr. Baljit Anderson for suture removal, Steri-Strip placement and continued left lower extremity immobilization. Follow-up in 6 weeks at [facility] orthopedic clinic with Dr. Baljit Anderson with left 3 view ankle x-rays on arrival out of immobilization. Anticipate discharge to residential facility on postoperative day #3, 2016. Follow Up Plan Follow Up Plan Follow-up in 2 weeks at [facility] orthopedic clinic with Dr. Baljit Anderson for suture removal and placement of Steri-Strips. Follow-up in 6 weeks at [facility] orthopedic clinic with Dr. Baljit Anderson with three-view left ankle x-rays and three-view hand x-rays on arrival Follow-up Provider (F9): Baljit Anderson MD Follow-up appointment: Weeks (follow-up in 2 weeks and 6 weeks as noted in follow-up plan above) Call your provider for: Fever, Chills, Shortness of breath, Vomitting, Drainage at incision Chai Moya PA-C Jan 20, 2017 10:04
[2017-01-20] MEDS ORDERED: HYDR-4003 PO (10:09)
--- NOTE | 2017-01-20 10:21 | PCM.DC.ORT ---
Discharge Summary Date of Service: Jan 20, 2017 Date of Hospital Admission: 01/18/2017 Date of Surgery: Jan 18, 2017 Date of Discharge: Jan 20, 2017 Reason for Hospitalization: Left ankle fracture and right hand fracture. Procedures Performed: Left ankle ORIF performed on 01/18/2017 and right hand nonoperative treatment at this time with ulnar gutter splint for immobilization. Hospital Course: Patient was admitted to the hospital on 01/18/2017. Upon admission patient described a ground-level fall occurring that morning prior to her coming to the hospital. X-rays were taken and patient is found to have a right fifth metacarpal fracture minimally displaced at the right upper extremity. Patient' s right upper extremity was immobilized and patient was taken to the operating room where her left lower extremity ankle ORIF procedure was performed without incident. Patient was then awakened in the operating room and taken to the postoperative care unit and upon recovery it was determined that she would stay overnight for observation based on her limited mobility with left lower and right upper extremity injuries. Patient has subsequently performed poorly with physical therapy regarding mobility and is currently using a front wheel walker with a right platform. Per physical therapy's recommendation patient is discharged to group home facility. Patient is in agreement with this and expresses concern regarding returning home by herself. Problems: (1) Fracture, metacarpal shaft Status: Acute ICD Code: S62.329A (2) Left trimalleolar fracture Status: Acute ICD Code: S82.852A Disposition: Discharged to group home facility on 01/20/2017 Orthopedic Follow up Plan: In Six Weeks in my clinic (follow up in 6 weeks' [facility] orthopedic clinic with Dr. Baljit martínez for follow-up of left ankle and right upper extremity fractures with 3 view left ankle x-rays and 3 view right hand x-rays on arrival) Discharge Instructions: Postop day #2 from left ankle fracture ORIF performed on 01/18/[address] Baljit Anderson. Post admission day #2 from right fifth metacarpal fracture suffered on 2016 while at home and preparing to come to the hospital for the above mentioned ankle surgery. LEFT ANKLE FRACTURE ORIF: Continue nonweightbearing on the left lower extremity using front wheeled platform walker. Patient has been asked to discontinue her knee scooter. Continue formal physical therapy for mobility, gait and safety. Maintained interoperative dressing and splint clean dry and intact and leave in place until seen in office at 2 weeks postop. Ice and elevate the left lower extremity as much as possible for pain and swelling reduction. Continue by mouth pain medication with 5 mg No DVT prophylaxis per Dr. Anderson. RIGHT 5TH METACARPEL FRACTURE: Continue nonweightbearing at the right upper extremity. Continue right upper extremity splinting for immobilization. Keep splint clean dry and intact and leave in place until seen in office in 2 weeks. Continue formal physical therapy for mobility regarding left lower extremity surgery with the use of a front wheeled platform walker for right upper extremity accommodation. Continue occupational therapy for mobility and self-care as available regarding right upper extremity injury. Pain control with left lower extremity pain medication in place. Fracture will be followed at 2 weeks when patient presents for follow-up at left ankle. NURSING: Please discontinue any IV pain medication immediately. Use by mouth pain medication only at this time and contact me if you need pain medication that is not already ordered. Nursing reports today just prior to discharge that patient's regular home meds had not been rated at time of surgery. These are renewed on discharge paperwork for commencement at group home facility. At this time patient is not safe for discharge to home considering she lives alone.. I have spoken with and they will consult regarding making patient inpatient and planning for SNF on [place]. Patient indicates she does not wish to go home and is concerned for her safety and would prefer to discharge to a group home facility at this time. I agree with this concern. Follow-up in 2 weeks at [facility] orthopedic clinic with Dr. Baljit Anderson for suture removal, Steri-Strip placement and continued left lower extremity immobilization. Follow-up in 6 weeks at [facility] orthopedic clinic with Dr. Baljit Anderson with left 3 view ankle x-rays on arrival out of immobilization. Discharge to group home facility today on postoperative day #2, 10/20/2016 Management Plan: Patient will be seen at 2 weeks, 6 weeks and 12 weeks postoperatively. She will be seen when necessary in the interim. Ascorbic Acid (Vitamin C) 500 Mg Capsule.er 1,000 MG PO DAILY Benzonatate (Benzonatate) 100 Mg Capsule 100 MG PO TID PRN PRN PRN Calcium Citrate (Calcium Citrate) 200 Mg Tablet 200 MG PO DAILY Cholecalciferol (Vitamin D3) (Vitamin D) 1,000 Unit Capsule 4,000 UNIT PO DAILY Diazepam (Diazepam) 5 Mg Tablet 5 MG PO TID PRN PRN For Anxiety Diclofenac Gel (Voltaren Gel) 100 Gm Tube 1 APPLIC TOPICAL QID PRN PRN PRN Doxepin (Doxepin) 10 Mg Capsule 50 MG PO HS Duloxetine (Duloxetine) 30 Mg Capsule.dr 60 MG PO HS Gabapentin (Gabapentin) 100 Mg Capsule 100 MG PO TID Hydrochlorothiazide (Hydrochlorothiazide) 25 Mg Tablet 12.5 MG PO DAILY Hydrocodone-Acetaminophen 5-325 mg (Hydrocodone-Acetaminophen 5-325 mg) 1 Each Tablet 1-2 TABLET PO Q4-6H PRN PRN For Moderate Pain Losartan Potassium (Losartan Potassium) 50 Mg Tablet 50 MG PO DAILY Lysine (l-Lysine) 500 Mg Tablet 500 MG PO DAILY PRN PRN cold sore Metformin (Metformin) 500 Mg Tablet 500 MG PO BID Breakfast/Dinner PT STOPPED W/O ADVICE OF Omeprazole (Omeprazole) 40 Mg Capsule.dr 20 MG PO DAILY Polyethylene Glycol 3350 (Polyethylene Glycol 3350) 17 Gm Powd.pack 17 GM PO DAILY Pravastatin (Pravastatin) 20 Mg Tablet 20 MG PO DAILY Tizanidine (Tizanidine) 2 Mg Tablet 2 MG PO TID PRN PRN PRN Venlafaxine (Venlafaxine) 25 Mg Tablet 25 MG PO TID Vit B Comp/C/FA/Iron/Vit E (Vitamin B Complex Tablet) 1 Each Tablet 1 EACH PO DAILY Chai Moya PA-C Jan 20, 2017 10:21
[2017-01-20] MEDS ORDERED: DOCU-41 PO (10:42)
--- NOTE | 2017-01-20 11:59 | NUR ---
Social Work- Discharge Data: EMR reviewed. Pt is on day 1 of hospitalization. Pt is medically ready for discharge. Pt has been accepted at [facility] under [facility] and [facility] for therapies. T/C to Karo, admissions at [facility], who is agreeable to accepting pt today. Pt is agreeable to discharging today as well. SW encouraged pt and pt's daughter to follow up with [facility] regarding [facility] care[facility]. CUSTOMER INSIGHT ANALYST faxed [facility] pt's clinicals. SW created packet and faxed discharge orders. Paperwork in chart. CUSTOMER INSIGHT ANALYST coordinated transportation with [facility] from [facility] to [facility] (as [facility] is not open on Sundays). Karo at [facility] agreeable to using [facility]. T/C to pt's daughter Karina England [phone] regarding pt's discharge, left message notifying her of pt's discharge at 1330. Karina returned call and confirmed understanding of pt's discharge. RN, UC, pt/family and [facility] all updated and agreeable to plan. Assessment: Pt for whom SNF is medically necessary. Plan: [facility] is able to accept pt under [facility] and [facility]. Pt to discharge to [facility] with [facility] to follow, transport via [facility] at 1330. RN, UC, pt/family and [facility] all updated and agreeable to plan. Anum Kraft MSW
--- NOTE | 2017-01-20 13:44 | NUR ---
Discharge Pt discharged at 1340 in taxi to [facility]. Report called to Dilma. Pt pre-medicated prior to discharge. CHARLES, RACHEL, A&O x 3. Packet with shuttle truck driver. Pt has all belongings and verified two hearing aids in container put in with belongings. Dressing on right arm and left leg are both CDI, and PA loosened dressing around 5th toe since pt was having pain.
== END 2017-01-20 13:41 | disposition home or self-care (01) ==
LOC: SAS 06:44 → OSC 12:13 → SAS 01-20 13:41
PROVIDERS: ATTEND Orthopaedic Surgery
DX: S82.852A Displaced trimalleolar fracture of left lower leg, initial encounter for closed fracture (principal); S62.306A Unspecified fracture of fifth metacarpal bone, right hand, initial encounter for closed fracture; V18.0XXA Pedal cycle driver injured in noncollision transport accident in nontraffic accident, initial encounter; Y93.55 Activity, bike riding; Y92.9 Unspecified place or not applicable; E11.9 Type 2 diabetes mellitus without complications; F41.8 Other specified anxiety disorders; I10 Essential (primary) hypertension; M79.7 Fibromyalgia; G47.9 Sleep disorder, unspecified
CPT/HCPCS: 26605; 27822; 27829; 36415; 71010; 73130; 76000; 76001; 81000; 85025; 97162; 97165; 97530; C1713; J1100; J1170; J1885; J2175; J2250; J2270; J2405; J2795; J3010; J3490; J7030; J7120